=== PATIENT | male | born 1960 | race African-American/Black ===

== ENCOUNTER 2018-06-20 16:57 | Inpatient (IN) | payer OTHER ==
[2018-06-20 19:20] VITALS: BMI 22.1
--- NOTE | 2018-06-20 21:43 | HP ---
Admission ROS [facility] Chief Complaint: SEEKING REHAB SERVICES Allergies/Adverse Reactions: Allergies Allergy/AdvReac Type Severity Reaction Status Date / Time corn Allergy Verified 06/20/18 21:39 Milk Containing Products Allergy Verified 06/20/18 21:39 Iodinated Contrast- Oral and AdvReac Verified 06/20/18 21:39 IV Dye peanut AdvReac Verified 06/20/18 21:38 History of Present Illness: 57 Y.O. WITH A HISTORY OF COCAINE, MARIJUANA AND ALCOHOL DEPENDENCE IS HERE SEEKING HIS FIRST ADMISSION TO REHAB. HE REPORTS HE COMPLETED DETOX AT [facility] ON 06/12/18. LONGEST PERIOD OF ILLICIT DRUG/ALCOHL ABSTINENCE HAS BEEN 5 YEARS. PT. WAS EVALUATED AT [facility]S ER FOR ASTHMA EXACERBATION EARLIER TODAY. HE WAS PRESCRIBED A 4 DAY COURSE OF PREDNISONE THAT WILL BE INITIATED DURING WHILE IN REHAB. Exam Limitations: No Limitations - Ebola screening Have you traveled outside of the country in the last 21 days: No Have you been sick,other than usual withdrawal symptoms: No - Review of Systems Constitutional: Night Sweats, Changes in sleep EENT: reports: No Symptoms Reported Respiratory: reports: Shortness of Breath, Wheezing Cardiac: reports: No Symptoms Reported GI: reports: No Symptoms Reported : reports: No Symptoms Reported Musculoskeletal: reports: Back Pain, Neck Pain Integumentary: reports: No Symptoms Reported Neuro: reports: Numbness (RUE), Tingling (RIGHT UE) Endocrine: reports: No Symptoms Reported Hematology: reports: No Symptoms Reported Psychiatric: reports: Anxious, Depressed Other Systems: Reviewed and Negative Patient History - Patient Medical History Hx Anemia: No Hx Asthma: Yes Hx Chronic Obstructive Pulmonary Disease (COPD): Yes Hx Cancer: No Hx Cardiac Disorders: No Hx Congestive Heart Failure: No Hx Hypertension: Yes Hx Hypercholesterolemia: No Hx Pacemaker: No HX Cerebrovascular Accident: No Hx Seizures: No Hx Dementia: No Hx Diabetes: No Hx Gastrointestinal Disorders: No Hx Liver Disease: No Hx Genitourinary Disorders: No Hx Sexually Transmitted Disorders: Yes (SYPHILIS, GONORHEA AND CHLAMYDIA ( TREATED)) Hx Renal Disease (ESRD): No Hx Thyroid Disease: No Hx Human Immunodeficiency Virus (HIV): No Hx Hepatitis C: No Hx Depression: Yes Hx Suicide Attempt: No Hx Bipolar Disorder: No Hx Schizophrenia: No Other Medical History: 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 History Hx Alcohol Use: Yes Hx Substance Use: Yes Substance Use Type: Alcohol, Cocaine, Marijuana Hx Substance Use Treatment: Yes (DETOX: 06/12/18 AT [facility] ) - Substances Abused Alcohol Route: Oral Frequency: Daily Amount used: 8 24-OZ CANS OF BEER Age of first use: 13 Date of Last Use: 06/17/18 Cocaine Route: Smoking Frequency: 1-2 times per week Amount used: $400 Age of first use: 23 Date of Last Use: 06/18/18 Marijuana/Hashish Route: Smoking Frequency: Daily Amount used: $50 Age of first use: 13 Date of Last Use: 06/18/18 Family Disease History - Family Disease History Family Disease History: Heart Disease: Grandparent (HTN ), Respiratory: Grandparent Admission Physical Exam [facility] - Vital Signs Vital Signs: Vital Signs - 24 hr 06/20/18 19:18 Temperature 97.0 F L Pulse Rate 106 H Respiratory 18 Rate Blood Pressure 138/86 - Physical General Appearance: Yes: Disheveled, Anxious HEENTM: Yes: Hearing grossly Normal, Normocephalic, Normal Voice Respiratory: Yes: Wheezing Neck: Yes: No masses,lesions,Nodules, Trachea in good position Breast: Yes: Breast Exam Deferred Cardiology: Yes: Regular Rhythm, Tachycardia Abdominal: Yes: Normal Bowel Sounds, Non Tender, Flat Genitourinary: Yes: Other (NO COMPLAINTS REPORTED) Back: Yes: Normal Inspection Musculoskeletal: Yes: Gait Steady Extremities: Yes: Normal Capillary Refill, Normal Inspection, Normal Range of Motion Neurological: Yes: Alert, Normal Mood/Affect, Normal Response Integumentary: Yes: Normal Color, Dry, Warm Lymphatic: Yes: Within Normal Limits - Diagnostic (1) COPD (chronic obstructive pulmonary disease) Current Visit: Yes Status: Chronic (2) Asthma Current Visit: Yes Status: Chronic (3) Emphysema lung Current Visit: Yes Status: Chronic (4) Hypertension Current Visit: Yes Status: Chronic (5) Legally blind in left eye, as defined in [place] Current Visit: Yes Status: Chronic (6) Chronic back pain Current Visit: Yes Status: Chronic Comment: REPORTS HE COMPLETED [place] (7) Nicotine dependence Current Visit: Yes Status: Chronic Cleared for Admission [facility] - Detox or Rehab [facility] Level of Care: Observation Bed Detox Regimen/Protocol: Not Applicable Claeared for Rehab Admission: Yes [facility] Breath Alcohol Content Breath Alcohol Content: 0 Urine Drug Screen - Results Drug Screen Negative: No Urine Drug Screen Results: THC-Marijuana, GREGORIO-Cocaine Inpatient Rehab Admission - Initial Determination Are CD services needed?: Yes Free of communicable disease: Yes Not in need of hospitalization: Yes - Rehab Admission Criteria Previous failed treatment: Yes Poor recovery environment: Yes Comorbidities: Yes Lacks judgement: Yes Patient is meeting Inpatient Rehab admission criteria:: Yes
[2018-06-20] MEDS ORDERED: LOPERAMIDE HCL 2 MG CAPSULE PO PRN (22:00)
[2018-06-20] MEDS ORDERED: MENTHOL/PHENOL 1 EACH UD MM PRN (22:00)
[2018-06-20] MEDS ORDERED: MAGNESIUM HYDROX 2400MG/30ML ORAL SUSPENSION 30 ML CUP PO PRN (22:00)
[2018-06-20] MEDS ORDERED: P-EPHED 60MG/TRIPROLIDI 2.5MG TABLET PO PRN (22:00)
[2018-06-20] MEDS ORDERED: guaiFENesin/D-METHORPHAN HB 10 ML UNIT-DOSE CUPS PO PRN (22:00)
[2018-06-20] MEDS ORDERED: MAGNESIUM CITRATE 300 ML BOTTLE PO PRN (22:00)
[2018-06-20] MEDS ORDERED: MELATONIN 5 MG TABLETS PO PRN (22:00)
[2018-06-20] MEDS ORDERED: IBUPROFEN 400 MG TABLET (FP) PO PRN (22:00)
[2018-06-20] MEDS ORDERED: NICOTINE POLACRILEX 2 MG GUM BC PRN (22:00)
[2018-06-20] MEDS ORDERED: MAG HYDROX/AL HYDROX/SIMETH 30 ML UNIT-DOSE CUP PO PRN (22:00)
[2018-06-20] MEDS ORDERED: ACETAMINOPHEN 325 MG TABLET (FP) PO PRN (22:00)
[2018-06-20] MEDS ORDERED: ZOLPIDEM TARTRATE 5 MG TABLET PO ONE (22:30)
[2018-06-21] MEDS: THIAMINE HCL 100 MG TABLET (FP) PO SCH ×2 (01:00→21:34)
[2018-06-21] MEDS: predniSONE 20 MG TABLET (UD) PO SCH ×4 (01:00→21:33)
[2018-06-21] MEDS ORDERED: ZOLPIDEM TARTRATE 5 MG TABLET PO ONE (01:45)
[2018-06-21] MEDS ORDERED: BUDESONIDE/FORMETEROL FUMARATE 80/4.5 mcg INHALER IH SCH (10:00)
--- NOTE | 2018-06-21 10:29 | EKG ---
Test Reason : Blood Pressure : / mmHG Vent. Rate : 091 BPM Atrial Rate : 091 BPM P-R Int : 150 ms QRS Dur : 090 ms QT Int : 390 ms P-R-T Axes : 076 081 076 degrees QTc Int : 479 ms NORMAL SINUS RHYTHM MINIMAL VOLTAGE CRITERIA FOR LVH, MAY BE NORMAL VARIANT BORDERLINE ECG NO PREVIOUS ECGS AVAILABLE Confirmed by URBAN SCHMIDT MD ([id number]) on 06/21/2018 10:28:51 AM Referred By: Confirmed By:URBAN SCHMIDT MD
[2018-06-21] MEDS: NIFEdipine E.R. 30 MG TABLET (FP) PO SCH (10:36)
[2018-06-21] MEDS: PANTOPRAZOLE 20 MG TABLET (FP) PO SCH (10:36)
[2018-06-21] MEDS: PRENATAL VITAMINS W/ FOLIC ACID TABLET (FP) PO SCH (10:36)
[2018-06-21] MEDS: NICOTINE 21 MG/24 HOURS TOPICAL PATCH TD SCH (10:36)
--- NOTE | 2018-06-21 14:26 | HP ---
Psychiatrist Admission - Data Date of interview: 06/21/18 Admission source: [facility] Identifying data: First admission to [facility] for this 57 y/o AA male seeking rehabilitation treatment for alcohol,cocaine and cannabis dependence.First admission to [facility].Patient is single,a father of fourteen,,domiciled, unemployed and supported on SSI benefits. Medical History: Patient is legally blind (left eye).Presents with COPD, emphysema,bronchial asthma,hypertension,past treatment for STDs (syphilis, chlamydia,gonorrhea) and orthosurgery for fracture of left mandible (2014). Psychiatric History: Patient denies history of psychiatric hospitalizations.Sees a psychiatrist at a [facility] in [place].Reportedly diagnosed with Mood Disorder and prescribed seroquel 200 mg/ day (verified by discharge note from [facility]).Mr Lynch denies history of suicide attempts. Physical/Sexual Abuse/Trauma History: Patient denies. Additional Comment: Discussed in this interview.Patient confirms the following report from [facility] : Smoking history: Current every day smoker. Have you smoked in the past 12 months: Yes. Aproximately how many cigarettes per day: 3. Initiated information on smoking cessation: Yes. 'Breaking Loose' booklet given : 06/20/18. - Substance & Tx. History. Hx Alcohol Use: Yes. Hx Substance Use : Yes. Substance Use Type: Alcohol, Cocaine, Marijuana. Hx Substance Use Treatment: Yes (DETOX: 06/12/18 AT [facility] ). - Substances Abused. * * Alcohol. Route: Oral. Frequency: Daily. Amount used: 8 24-OZ CANS OF BEER. Age of first use: 13. Date of Last Use: 06/17/18. Cocaine. Route: Smoking. Frequency: 1-2 times per week. Amount used: $400. Age of first use: 23. Date of Last Use: 06/18/18. Marijuana/Hashish. Route: Smoking. Frequency: Daily. Amount used: $50. Age of first use: 13. Date of Last Use: 06/18/18. Urine Drug Screen Results: THC-Marijuana, GREGORIO-Cocaine.Noted on admission. Vital Signs: Vital Signs - 24 hr 06/20/18 06/21/18 06/21/18 19:18 03:30 04:53 Temperature 97.0 F L 98.3 F Pulse Rate 106 H 106 H Respiratory 18 18 20 Rate Blood Pressure 138/86 137/97 06/21/18 07:07 Temperature 98.3 F Pulse Rate 106 H Respiratory 20 Rate Blood Pressure 137/97 Allergies/Adverse Reactions: Allergies Allergy/AdvReac Type Severity Reaction Status Date / Time corn Allergy Verified 06/20/18 21:39 Milk Containing Products Allergy Verified 06/20/18 21:39 No Known Drug Allergies Allergy Verified 06/20/18 23:53 Iodinated Contrast- Oral and AdvReac Verified 06/20/18 21:39 IV Dye peanut AdvReac Verified 06/20/18 21:38 - Substance Abuse/Tx History Hx Alcohol Use: Yes Hx Substance Use: Yes (alcohol,cocaine,nicotine) Substance Use Type: Alcohol, Cocaine Hx Substance Use Treatment: Yes (recent detox treatment at [facility]) Mental Status Exam - Mental Status Exam Alert and Oriented to: Time, Place, Person Cognitive Function: Good Patient Appearance: Well Groomed Mood: Angry, Hostile, Irritable Affect: Normal Range Patient Behavior: Agitated (argumentative) Speech Pattern: Clear Voice Loudness: Mildly Loud Thought Process: Goal Oriented Thought Disorder: Not Present Hallucinations: Denies Suicidal Ideation: Denies Homicidal Ideation: Denies Insight/Judgement: Poor Sleep: Poorly, Difficulty falling asleep (as per self-report) Appetite: Good Muscle strength/Tone: Normal Gait/Station: Normal Psychiatric Findings - Problem List ([place] 1, 2,3) (1) Alcohol dependence Current Visit: Yes Status: Acute (2) Marijuana dependence Current Visit: Yes Status: Acute (3) Cocaine dependence Current Visit: Yes Status: Acute (4) Nicotine dependence Current Visit: Yes Status: Acute (5) Substance induced mood disorder Current Visit: Yes Status: Acute (6) Mood disorder Current Visit: Yes Status: Chronic (7) Insomnia Current Visit: Yes Status: Acute - Initial Treatment Plan Initial Treatment Plan: Psychoeducation.Sleep hygiene.Support and reassurance.Medical issues will be addressed.Seroquel dose is confirmed.Will continue seroquel 200 mg po hs.Side effects/benefits discussed with the patient.Mr Lynch agrees to this careplan.Observation.
[2018-06-21] MEDS ORDERED: QUEtiapine FUMARATE 50 MG TABLET PO ONE (15:08)
--- NOTE | 2018-06-21 15:50 | PN ---
[facility] Progress Note Note: c/o pain in (R) hand, wrist, and up to arm. Numbness, tingling sharp "10". FROM hand and wrists. No edema. Radial pulses (+). Cap refill less than 3 seconds. Reviewed home topical medication compound cream for wrist pain. Will order topical medication after pharmacy verification.
[2018-06-21] MEDS ORDERED: PT OWN MED DRAWER 7, Y5N ONE ×2 (16:28→21:59)
[2018-06-21] MEDS: MONTELUKAST NA 10 MG TABLET PO SCH (21:33)
[2018-06-21] MEDS: TAMSULOSIN HCL 0.4 MG CAP.ER.24H (FP) PO SCH (21:33)
[2018-06-21] MEDS: FORMETEROL FUMARATE IH SCH (21:33)
[2018-06-21] MEDS: diphenhydrAMINE HCL 50 MG CAPSULE PO SCH (21:33)
[2018-06-21] MEDS: QUEtiapine FUMARATE 100 MG TABLET (FP) PO SCH (21:33)
[2018-06-21] MEDS: DOCUSATE SODIUM 100 MG CAPSULE (FP) PO SCH (21:33)
[2018-06-21] MEDS: BUDESONIDE IH SCH (21:33)
[2018-06-22] MEDS: ALBUTEROL SO4 8 GM HFA INHALER IH PRN ×3 (00:18→21:49)
[2018-06-22] MEDS: hydrOXYzine PAMOATE 50 MG CAPSULE (FP) PO PRN ×2 (00:19→06:30)
[2018-06-22] MEDS: predniSONE 20 MG TABLET (UD) PO SCH ×3 (06:30→21:46)
[2018-06-22] MEDS ORDERED: PT OWN MED DRAWER 7, Y5N ONE ×2 (09:03→16:17)
[2018-06-22] MEDS: PRENATAL VITAMINS W/ FOLIC ACID TABLET (FP) PO SCH (09:44)
[2018-06-22] MEDS: NIFEdipine E.R. 30 MG TABLET (FP) PO SCH (09:44)
[2018-06-22] MEDS: FOLIC ACID 1 MG TABLET (FP) PO SCH (09:44)
[2018-06-22] MEDS: DOCUSATE SODIUM 100 MG CAPSULE (FP) PO SCH ×2 (09:44→21:46)
[2018-06-22] MEDS: PANTOPRAZOLE 20 MG TABLET (FP) PO SCH (09:44)
[2018-06-22] MEDS: NICOTINE 21 MG/24 HOURS TOPICAL PATCH TD SCH (09:45)
[2018-06-22] MEDS: TIOTROPIUM BROMIDE 2.5 MCG (SPIRIVA) RESPIMAT INHALER IH SCH (09:45)
[2018-06-22] MEDS: FORMETEROL FUMARATE IH SCH ×2 (09:46→21:46)
[2018-06-22] MEDS: BUDESONIDE IH SCH ×2 (09:46→21:46)
[2018-06-22] MEDS: ALBUTEROL SO4 2.5/IPRATROPIUM 0.5 INH SOL 3 ML VIAL.NEB. NEB PRN (10:59)
[2018-06-22] MEDS ORDERED: QUEtiapine FUMARATE 50 MG TABLET PO ONE (11:15)
[2018-06-22 11:22] LABS: HEMATOCRIT 40.7 % (35.4-49); HEMOGLOBIN 12.9 GM/dL (11.7-16.9); MCH 30.1 pg (25.7-33.7); MCHC 31.8 g/dl (32.0-35.9); MEAN CELL VOLUME 94.7 fl (80-96); PLATELET COUNT 216 K/MM3 (134-434); RDW 13.8 % (11.9-15.9); WHITE BLOOD COUNT 13.9 K/mm3 (4.0-10.0)
[2018-06-22 11:42] LABS: ANION GAP 9 MMOL/L (8-16); BLOOD UREA NITROGEN 14 mg/dL (7-18); CALCIUM 9.8 mg/dL (8.5-10.1); CHLORIDE 105 mmol/L (98-107); CO2 25 mmol/L (21-32); GLUCOSE,RANDOM 226 mg/dL (74-106); POTASSIUM 4.4 mmol/L (3.5-5.1); SODIUM 139 mmol/L (136-145)
[2018-06-22 11:45] LABS: ALK PHOS 118 U/L (45-117); BILIRUBIN,TOTAL 0.3 mg/dL (0.2-1.0); SGOT/AST 41 U/L (15-37); SGPT/ALT 69 U/L (12-78); TOT PROT 7.4 g/dl (6.4-8.2)
[2018-06-22] MEDS: QUEtiapine FUMARATE 100 MG TABLET (FP) PO SCH (21:46)
[2018-06-22] MEDS: diphenhydrAMINE HCL 50 MG CAPSULE PO SCH (21:46)
[2018-06-22] MEDS: MONTELUKAST NA 10 MG TABLET PO SCH (21:46)
[2018-06-22] MEDS: TAMSULOSIN HCL 0.4 MG CAP.ER.24H (FP) PO SCH (21:46)
[2018-06-22] MEDS: THIAMINE HCL 100 MG TABLET (FP) PO SCH (21:46)
[2018-06-23] MEDS: ALBUTEROL SO4 8 GM HFA INHALER IH PRN ×2 (02:36→18:03)
[2018-06-23] MEDS: predniSONE 20 MG TABLET (UD) PO SCH ×3 (05:53→21:16)
[2018-06-23] MEDS: hydrOXYzine PAMOATE 50 MG CAPSULE (FP) PO PRN (05:53)
[2018-06-23] MEDS: ALBUTEROL SO4 2.5/IPRATROPIUM 0.5 INH SOL 3 ML VIAL.NEB. NEB PRN ×2 (07:56→14:27)
[2018-06-23] MEDS ORDERED: PT OWN MED DRAWER 7, Y5N ONE (08:54)
[2018-06-23] MEDS: NICOTINE 21 MG/24 HOURS TOPICAL PATCH TD SCH (09:26)
[2018-06-23] MEDS: PRENATAL VITAMINS W/ FOLIC ACID TABLET (FP) PO SCH (09:27)
[2018-06-23] MEDS: FOLIC ACID 1 MG TABLET (FP) PO SCH (09:27)
[2018-06-23] MEDS: DICLOFENAC SODIUM 25 MG TABLET.DR PO PRN ×2 (09:27→14:25)
[2018-06-23] MEDS: NIFEdipine E.R. 30 MG TABLET (FP) PO SCH (09:27)
[2018-06-23] MEDS: DOCUSATE SODIUM 100 MG CAPSULE (FP) PO SCH ×2 (09:27→21:16)
[2018-06-23] MEDS: PANTOPRAZOLE 20 MG TABLET (FP) PO SCH (09:27)
[2018-06-23] MEDS: TIOTROPIUM BROMIDE 2.5 MCG (SPIRIVA) RESPIMAT INHALER IH SCH (09:30)
[2018-06-23] MEDS: BUDESONIDE IH SCH ×2 (09:31→21:15)
[2018-06-23] MEDS: FORMETEROL FUMARATE IH SCH ×2 (09:31→21:15)
[2018-06-23] MEDS: IBUPROFEN 400 MG TABLET (FP) PO PRN (14:33)
--- NOTE | 2018-06-23 19:19 | PN ---
[facility] Progress Note Note: Patient c/o severe mental health concerns and being under-medicated with seroquel. Patient requesting to carry albuterol inhaler in case of severe asthma attack. Reviewed patients' home medication list. Patient was given the option of being transferred to [facility] for mental health and medication evaluation but declined. Objective: Speaking for 10 - 15 minutes loudly while moving/pacing without signs of SOB/dyspnea and Pulse Ox =95 Security support present during conversation Plan: Patient agrees to: 1) refrain from yelling at staff or patients 2) refrain from banging doors, tossing chairs or banging haddad 3) refrain from pacing in the halls after midnight 4) insisting mental health meds be changed. All medications will remain in the nurses station and given as prescribed. Patient will be transferred to [place] for mental health evaluation or administratively discharged for uncontrolled outbursts or aggressive behavior.
[2018-06-23] MEDS: QUEtiapine FUMARATE 100 MG TABLET (FP) PO SCH (21:15)
[2018-06-23] MEDS: THIAMINE HCL 100 MG TABLET (FP) PO SCH (21:15)
[2018-06-23] MEDS: MONTELUKAST NA 10 MG TABLET PO SCH (21:15)
[2018-06-23] MEDS: TAMSULOSIN HCL 0.4 MG CAP.ER.24H (FP) PO SCH (21:15)
[2018-06-23] MEDS: diphenhydrAMINE HCL 50 MG CAPSULE PO SCH (21:16)
--- NOTE | 2018-06-23 21:42 | PN ---
[facility] Progress Note (SOAP) Subjective: Patient c/o severe mental health concerns and being under-medicated with seroquel. Patient requesting to carry albuterol inhaler in case of severe asthma attack. Objective: Alert and oriented x 3. Speaking for 10 - 15 minutes loudly while moving/ pacing without signs of SOB/dyspnea. 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 Plan: Plan: Patient agrees to: 1) refrain from yelling at staff or patients 2) refrain from banging doors, tossing chairs or banging haddad 3) refrain from pacing in the halls after midnight 4) insisting mental health meds be changed. All medications will remain in the nurses station and given as prescribed. Continue rehab protocol Patient will be transferred to [place] for mental health evaluation or administratively discharged for uncontrolled outbursts or aggressive behavior.
[2018-06-24] MEDS: predniSONE 20 MG TABLET (UD) PO SCH ×3 (06:03→21:44)
[2018-06-24] MEDS: ALBUTEROL SO4 8 GM HFA INHALER IH PRN ×2 (06:04→16:37)
[2018-06-24] MEDS: hydrOXYzine PAMOATE 50 MG CAPSULE (FP) PO PRN ×4 (06:04→17:04)
[2018-06-24] MEDS: ALBUTEROL SO4 2.5/IPRATROPIUM 0.5 INH SOL 3 ML VIAL.NEB. NEB PRN ×2 (08:06→16:38)
[2018-06-24] MEDS ORDERED: PT OWN MED DRAWER 7, Y5N ONE ×3 (08:54→21:44)
[2018-06-24] MEDS: NIFEdipine E.R. 30 MG TABLET (FP) PO SCH (10:03)
[2018-06-24] MEDS: DOCUSATE SODIUM 100 MG CAPSULE (FP) PO SCH ×2 (10:03→21:44)
[2018-06-24] MEDS: PANTOPRAZOLE 20 MG TABLET (FP) PO SCH (10:03)
[2018-06-24] MEDS: PRENATAL VITAMINS W/ FOLIC ACID TABLET (FP) PO SCH (10:03)
[2018-06-24] MEDS: TIOTROPIUM BROMIDE 2.5 MCG (SPIRIVA) RESPIMAT INHALER IH SCH (10:04)
[2018-06-24] MEDS: NICOTINE 21 MG/24 HOURS TOPICAL PATCH TD SCH (10:04)
[2018-06-24] MEDS: FOLIC ACID 1 MG TABLET (FP) PO SCH (10:04)
[2018-06-24] MEDS: BUDESONIDE IH SCH ×2 (10:06→21:44)
[2018-06-24] MEDS: FORMETEROL FUMARATE IH SCH ×2 (10:06→21:44)
--- NOTE | 2018-06-24 16:22 | PN ---
S Progress Note Note: Followed-up with patient today. Patient's voice is calm, and there are nor restless or agitated movements observed. Patient states he is adhering to behavioral requirements. Quieter, controlled behavior is confirmed by nursing staff. Plan: Continue rehab.
[2018-06-24] MEDS: TAMSULOSIN HCL 0.4 MG CAP.ER.24H (FP) PO SCH (21:43)
[2018-06-24] MEDS: MONTELUKAST NA 10 MG TABLET PO SCH (21:43)
[2018-06-24] MEDS: QUEtiapine FUMARATE 100 MG TABLET (FP) PO SCH (21:44)
[2018-06-24] MEDS: THIAMINE HCL 100 MG TABLET (FP) PO SCH (21:44)
[2018-06-24] MEDS: diphenhydrAMINE HCL 50 MG CAPSULE PO SCH (21:44)
[2018-06-25] MEDS: ALBUTEROL SO4 8 GM HFA INHALER IH PRN (03:02)
[2018-06-25] MEDS: hydrOXYzine PAMOATE 50 MG CAPSULE (FP) PO PRN ×2 (03:02→10:36)
[2018-06-25] MEDS ORDERED: PT OWN MED DRAWER 7, Y5N ONE (08:55)
[2018-06-25] MEDS: PANTOPRAZOLE 20 MG TABLET (FP) PO SCH (10:28)
[2018-06-25] MEDS: PRENATAL VITAMINS W/ FOLIC ACID TABLET (FP) PO SCH (10:28)
[2018-06-25] MEDS: NIFEdipine E.R. 30 MG TABLET (FP) PO SCH (10:28)
[2018-06-25] MEDS: NICOTINE 21 MG/24 HOURS TOPICAL PATCH TD SCH (10:29)
[2018-06-25] MEDS: BUDESONIDE IH SCH ×2 (10:29→21:45)
[2018-06-25] MEDS: FORMETEROL FUMARATE IH SCH ×2 (10:29→21:45)
[2018-06-25] MEDS: DICLOFENAC SODIUM 25 MG TABLET.DR PO PRN (10:30)
[2018-06-25] MEDS: FOLIC ACID 1 MG TABLET (FP) PO SCH (10:30)
[2018-06-25] MEDS: DOCUSATE SODIUM 100 MG CAPSULE (FP) PO SCH ×2 (10:33→21:45)
[2018-06-25] MEDS: ALBUTEROL SO4 2.5/IPRATROPIUM 0.5 INH SOL 3 ML VIAL.NEB. NEB PRN ×2 (10:42→16:58)
[2018-06-25] MEDS: TIOTROPIUM BROMIDE 2.5 MCG (SPIRIVA) RESPIMAT INHALER IH SCH (10:43)
--- NOTE | 2018-06-25 13:00 | PN ---
Psychiatric Progress Note Vital Signs: Vital Signs Period Temp Pulse Resp BP Sys/Capps Pulse Ox Last 24 Hr 106-128 -18 115-145/68-94 Date of Session: 06/25/18 Chief Complaint:: " I need more seroquel.I cannot sleep at night." HPI: Patient is re-evaluated to address irritability,recurrent angry outbursts and insomnia.Mr Lynch is already known to this policy writer typist. ROS: Patient is alert and fully oriented.Easily agitated.Hyperactive. Current Medications: Active Medications Generic Name Dose Route Start Last Admin Trade Name Freq PRN Reason Stop Dose Admin Acetaminophen 650 mg 06/20/18 22:00 Tylenol - PO Q4H PRN FEVER Al Hydroxide/Mg Hydroxide 30 ml 06/20/18 22:00 Mylanta Oral Suspension - PO Q6H PRN DYSPEPSIA Albuterol Sulfate 2 puff 06/21/18 01:13 06/25/18 03:02 Ventolin Hfa Inhaler - IH 2 puff Q4H PRN Administration ASTHMA Albuterol/Ipratropium 1 amp 06/20/18 22:11 06/25/18 10:42 Duoneb - NEB 1 amp Q4H PRN Administration SHORTNESS OF BREATH Budesonide/Formoterol Fumarate 2 puff 06/21/18 22:00 06/25/18 10:29 Symbicort 80/4.5mcg - IH 2 puff BID KATRIN Administration Diclofenac Sodium 50 mg 06/21/18 15:50 06/25/18 10:30 Voltaren - PO 50 mg TID PRN Administration PAIN LEVEL 7 - 10 Diphenhydramine HCl 50 mg 06/21/18 22:00 06/24/18 21:44 Benadryl - PO 50 mg HS KATRIN Administration Docusate Sodium 100 mg 06/21/18 22:00 06/25/18 10:33 Colace - PO 100 mg BID KATRIN Administration Eucalyptus/Menthol/Phenol/Sorbitol 1 each 06/20/18 22:00 Cepastat Lozenge - MM Q4H PRN SORE THROAT Folic Acid 1 mg 06/22/18 10:00 06/25/18 10:30 Folic Acid - PO 1 mg DAILY KATRIN Administration Guaifenesin 10 ml 06/20/18 22:00 Robitussin Dm - PO Q6H PRN COUGH Hydroxyzine Pamoate 50 mg 06/20/18 22:00 06/25/18 10:36 Vistaril - PO 50 mg Q4H PRN Administration AGITATION Ibuprofen 800 mg 06/21/18 01:20 06/23/18 14:33 Motrin - PO 800 mg Q8H PRN Administration Pain level 4-6 Loperamide HCl 4 mg 06/20/18 22:00 Imodium - PO Q6H PRN DIARRHEA Magnesium Citrate 300 ml 06/20/18 22:00 Citroma - PO Q48H PRN CONSTIPATION Magnesium Hydroxide 30 ml 06/20/18 22:00 Milk Of Magnesia - PO DAILY PRN CONSTIPATION Melatonin 5 mg 06/20/18 22:00 Melatonin PO HS PRN INSOMNIA Montelukast Sodium 10 mg 06/21/18 22:00 06/24/18 21:43 Singulair - PO 10 mg HS KATRIN Administration Nicotine 21 mg 06/21/18 10:00 06/25/18 10:29 Nicoderm Patch - TD 21 mg DAILY KATRIN Administration Nicotine Polacrilex 2 mg 06/20/18 22:00 Nicorette Gum - BC Q2H PRN NICOTINE REPLACEMENT RX Nifedipine 30 mg 06/21/18 10:00 06/25/18 10:28 Procardia Xl - PO 30 mg DAILY KATRIN Administration Non-Formulary Medication 1 each 06/21/18 18:00 06/25/18 10:31 Patient's Own Med TP 1 each QID KATRIN Administration Pantoprazole Sodium 20 mg 06/21/18 10:00 06/25/18 10:28 Protonix - PO 20 mg DAILY KATRIN Administration Multivit/Folic Acid/Iron 1 tab 06/21/18 10:00 06/25/18 10:28 Vitamins (Sjr) - PO 1 tab DAILY KATRIN Administration Pseudoephedrine/Triprolidine 1 combo 06/20/18 22:00 Actifed - PO TID PRN NASAL CONGESTION Quetiapine Fumarate 100 mg 06/21/18 22:00 06/24/18 21:44 Seroquel - PO 100 mg HS KATRIN Administration Quetiapine Fumarate 100 mg 06/25/18 13:00 Seroquel - PO DAILY KATRIN Tamsulosin HCl 0.4 mg 06/21/18 22:00 06/24/18 21:43 Flomax - PO 0.4 mg HS KATRIN Administration Thiamine HCl 100 mg 06/20/18 22:00 06/24/18 21:44 Vitamin B1 - PO 100 mg HS KATRIN Administration Tiotropium Glide 2 puff 06/22/18 10:00 06/25/18 10:43 Spiriva Respimat IH 2 puff DAILY KATRIN Administration Medication(s) Change(s): Seroquel is now raised to 100 mg po daily + 150 mg po hs.Side effects/benefits are discussed with the patient.Mr Lynch agrees to that plan of care. Current Side Effect: No Lab tests ordered: No Lab tests reviewed: Yes Provider note:: Met with patient.Mr Lynch is irritable and needy.He insists on getting a dose of seroquel during daytime.Patient is receptive to teaching.Responsive to redirections.Not psychotic.Able to maintain good rapport with staff.Baseline. Total face to face time:: 25 Mental Status Exam - Mental Status Exam Alert and Oriented to: Time, Place, Person Cognitive Function: Good Patient Appearance: Well Groomed Mood: Anxious, Irritable Affect: Mood Congruent Patient Behavior: Appropriate, Cooperative Speech Pattern: Clear, Appropriate Voice Loudness: Normal Thought Process: Goal Oriented Thought Disorder: Not Present Hallucinations: Denies Suicidal Ideation: Denies Homicidal Ideation: Denies Insight/Judgement: Fair Sleep: Poorly, Difficulty falling asleep Appetite: Good Muscle strength/Tone: Normal Gait/Station: Normal Psychiatric Treatment Plan - Problem List (1) Alcohol dependence Current Visit: Yes (2) Marijuana dependence Current Visit: Yes (3) Cocaine dependence Current Visit: Yes (4) Nicotine dependence Current Visit: Yes (5) Substance induced mood disorder Current Visit: Yes (6) Mood disorder Current Visit: Yes (7) Insomnia Current Visit: Yes
[2018-06-25] MEDS: QUEtiapine FUMARATE 100 MG TABLET (FP) PO SCH ×2 (13:15→21:45)
--- NOTE | 2018-06-25 13:54 | PN ---
[facility] Progress Note Note: Vital Signs Temperature 98 F 06/24/18 06:53 Pulse Rate 106 H 06/25/18 09:58 Respiratory Rate 18 06/25/18 09:58 Blood Pressure 115/94 06/25/18 09:58 O2 Sat by Pulse Oximetry (%) Laboratory Last Values WBC 13.9 K/mm3 (4.0-10.0) H 06/22/18 09:39 RBC 4.30 M/mm3 (4.00-5.60) 06/22/18 09:39 Hgb 12.9 GM/dL (11.7-16.9) 06/22/18 09:39 Hct 40.7 % (35.4-49) 06/22/18 09:39 MCV 94.7 fl (80-96) 06/22/18 09:39 MCH 30.1 pg (25.7-33.7) 06/22/18 09:39 MCHC 31.8 g/dl (32.0-35.9) L 06/22/18 09:39 RDW 13.8 % (11.9-15.9) 06/22/18 09:39 Plt Count 216 K/MM3 (134-434) 06/22/18 09:39 MPV 10.0 fl (7.5-11.1) 06/22/18 09:39 Sodium 139 mmol/L (136-145) 06/22/18 09:39 Potassium 4.4 mmol/L (3.5-5.1) 06/22/18 09:39 Chloride 105 mmol/L (98-107) 06/22/18 09:39 Carbon Dioxide 25 mmol/L (21-32) 06/22/18 09:39 Anion Gap 9 MMOL/L (8-16) 06/22/18 09:39 BUN 14 mg/dL (7-18) 06/22/18 09:39 Creatinine 1.0 mg/dL (0.7-1.3) 06/22/18 09:39 Creat Clearance w eGFR > 60 (>60) 06/22/18 09:39 Random Glucose 226 mg/dL (74-106) H 06/22/18 09:39 Calcium 9.8 mg/dL (8.5-10.1) 06/22/18 09:39 Total Bilirubin 0.3 mg/dL (0.2-1.0) 06/22/18 09:39 AST 41 U/L (15-37) H 06/22/18 09:39 ALT 69 U/L (12-78) 06/22/18 09:39 Alkaline Phosphatase 118 U/L (45-117) H 06/22/18 09:39 Total Protein 7.4 g/dl (6.4-8.2) 06/22/18 09:39 Albumin 4.0 g/dl (3.4-5.0) 06/22/18 09:39 RPR Titer Nonreactive (NONREACTIVE) 06/22/18 09:39 Labs reviewed d/c tylenol repeat CBC u/a ordered continue to monitor
--- NOTE | 2018-06-25 14:49 | PN ---
[facility] Progress Note Note: c/o of generalized itching Benadryl 25 mg prn increase fluids continue to monitor
[2018-06-25] MEDS: diphenhydrAMINE HCL 25 MG CAPSULE (FP) PO PRN ×2 (14:54→21:45)
[2018-06-25 19:31] LABS: URINE APPEARANCE CLEAR; URINE BILIRUBIN NEGATIVE (<2.0 mg/dL); URINE COLOR STRAW; URINE GLUCOSE (UA) 3+ (NEGATIVE); URINE KETONE NEGATIVE (NEGATIVE); URINE LEUK ESTERASE NEGATIVE (NEGATIVE); URINE NITRITE NEGATIVE (NEGATIVE); URINE PROTEIN NEGATIVE (NEGATIVE); URINE UROBILINOGEN NEGATIVE mg/dL (0.2-1.0)
[2018-06-25] MEDS: TAMSULOSIN HCL 0.4 MG CAP.ER.24H (FP) PO SCH (21:45)
[2018-06-25] MEDS: THIAMINE HCL 100 MG TABLET (FP) PO SCH (21:45)
[2018-06-25] MEDS: MONTELUKAST NA 10 MG TABLET PO SCH (21:45)
--- NOTE | 2018-06-25 22:16 | PN ---
S Progress Note Note: Vital Signs Temperature 98 F 06/24/18 06:53 Pulse Rate 106 H 06/25/18 09:58 Respiratory Rate 18 06/25/18 09:58 Blood Pressure 115/94 06/25/18 09:58 O2 Sat by Pulse Oximetry (%) c/o of sore throat peridex prn throat culture continue to monitor
[2018-06-25] MEDS: IBUPROFEN 400 MG TABLET (FP) PO PRN (22:46)
[2018-06-26] MEDS: hydrOXYzine PAMOATE 50 MG CAPSULE (FP) PO PRN ×3 (06:00→14:40)
[2018-06-26] MEDS: NICOTINE 21 MG/24 HOURS TOPICAL PATCH TD SCH (09:51)
[2018-06-26] MEDS: PANTOPRAZOLE 20 MG TABLET (FP) PO SCH (09:51)
[2018-06-26] MEDS: DOCUSATE SODIUM 100 MG CAPSULE (FP) PO SCH ×2 (09:51→22:07)
[2018-06-26] MEDS: TIOTROPIUM BROMIDE 2.5 MCG (SPIRIVA) RESPIMAT INHALER IH SCH (09:51)
[2018-06-26] MEDS: NIFEdipine E.R. 30 MG TABLET (FP) PO SCH (09:51)
[2018-06-26] MEDS: FORMETEROL FUMARATE IH SCH ×2 (09:51→22:10)
[2018-06-26] MEDS: QUEtiapine FUMARATE 100 MG TABLET (FP) PO SCH ×2 (09:51→22:08)
[2018-06-26] MEDS: BUDESONIDE IH SCH ×2 (09:51→22:10)
[2018-06-26] MEDS: PRENATAL VITAMINS W/ FOLIC ACID TABLET (FP) PO SCH (09:51)
[2018-06-26] MEDS: FOLIC ACID 1 MG TABLET (FP) PO SCH (09:53)
[2018-06-26] MEDS: diphenhydrAMINE HCL 25 MG CAPSULE (FP) PO PRN ×2 (09:55→22:12)
[2018-06-26] MEDS: CHLORHEXIDINE GLUCONATE 0.12% 15ML CUP MM SCH ×2 (10:17→22:09)
[2018-06-26] MEDS: ALBUTEROL SO4 2.5/IPRATROPIUM 0.5 INH SOL 3 ML VIAL.NEB. NEB PRN ×2 (14:39→22:31)
--- NOTE | 2018-06-26 15:46 | PN ---
[facility] Progress Note Note: Vital Signs Temperature 97.3 F L 06/26/18 06:48 Pulse Rate 107 H 06/26/18 10:51 Respiratory Rate 18 06/26/18 10:51 Blood Pressure 123/97 06/26/18 10:51 O2 Sat by Pulse Oximetry (%) c/o of sore throat and requested to see a dentist. Poor dentition no infection pending throat culture pending lab results
[2018-06-26 16:06] LABS: BASO % 0.7 % (0-2.0); EOS % 1.6 % (0-4.5); HEMATOCRIT 40.4 % (35.4-49); HEMOGLOBIN 13.2 GM/dL (11.7-16.9); LYMPH % 24.2 % (8-40); MCH 30.6 pg (25.7-33.7); MCHC 32.8 g/dl (32.0-35.9); MEAN CELL VOLUME 93.4 fl (80-96); MEAN PLT VOLUME 9.5 fl (7.5-11.1); NEUT % 66.5 % (42.8-82.8); PLATELET COUNT 238 K/MM3 (134-434); RBC 4.33 M/mm3 (4.00-5.60); RDW 13.8 % (11.9-15.9); WHITE BLOOD COUNT 7.5 K/mm3 (4.0-10.0)
[2018-06-26 18:25] LABS: PLATELET ESTIMATE ADEQUATE
[2018-06-26] MEDS: IBUPROFEN 400 MG TABLET (FP) PO PRN (20:16)
[2018-06-26] MEDS: TAMSULOSIN HCL 0.4 MG CAP.ER.24H (FP) PO SCH (22:07)
[2018-06-26] MEDS: MONTELUKAST NA 10 MG TABLET PO SCH (22:07)
[2018-06-26] MEDS: THIAMINE HCL 100 MG TABLET (FP) PO SCH (22:08)
[2018-06-27] MEDS: hydrOXYzine PAMOATE 50 MG CAPSULE (FP) PO PRN (05:55)
[2018-06-27] MEDS: IBUPROFEN 400 MG TABLET (FP) PO PRN (05:55)
[2018-06-27 07:10] VITALS: BP 115/83; PULSE 108; TEMP 97.8
[2018-06-27] MEDS ORDERED: PT OWN MED DRAWER 7, Y5N ONE (09:25)
--- NOTE | 2018-06-27 09:26 | PN ---
Psychiatric Progress Note Vital Signs: Vital Signs Period Temp Pulse Resp BP Sys/Capps Pulse Ox Last 24 Hr 97.8 F 107-108 18-20 115-123/83-97 Date of Session: 06/27/18 Chief Complaint:: "Discharge" HPI: Patient was admitted to for alcohol,cocaine and cannabis dependence. ROS: Patient is legally blind (left eye).Presents with COPD,emphysema,bronchial asthma,hypertension,past treatment for STDs (syphilis,chlamydia,gonorrhea) and orthosurgery for fracture of left mandible (2014). Current Medications: Active Medications Generic Name Dose Route Start Last Admin Trade Name Freq PRN Reason Stop Dose Admin Al Hydroxide/Mg Hydroxide 30 ml 06/20/18 22:00 Mylanta Oral Suspension - PO Q6H PRN DYSPEPSIA Albuterol Sulfate 2 puff 06/21/18 01:13 06/25/18 03:02 Ventolin Hfa Inhaler - IH 2 puff Q4H PRN Administration ASTHMA Albuterol/Ipratropium 1 amp 06/20/18 22:11 06/26/18 22:31 Duoneb - NEB 1 amp Q4H PRN Administration SHORTNESS OF BREATH Budesonide/Formoterol Fumarate 2 puff 06/21/18 22:00 06/26/18 22:10 Symbicort 80/4.5mcg - IH 2 puff BID KATRIN Administration Chlorhexidine Gluconate 15 ml 06/26/18 10:00 06/26/18 22:09 Peridex - MM 15 ml BID KATRIN Administration Diclofenac Sodium 50 mg 06/21/18 15:50 06/25/18 10:30 Voltaren - PO 50 mg TID PRN Administration PAIN LEVEL 7 - 10 Diphenhydramine HCl 25 mg 06/25/18 14:47 06/26/18 22:12 Benadryl - PO 25 mg HS PRN Administration INSOMNIA Docusate Sodium 100 mg 06/21/18 22:00 06/26/18 22:07 Colace - PO 100 mg BID KATRIN Administration Eucalyptus/Menthol/Phenol/Sorbitol 1 each 06/20/18 22:00 06/27/18 05:56 Cepastat Lozenge - MM 1 each Q4H PRN Administration SORE THROAT Folic Acid 1 mg 06/22/18 10:00 06/26/18 09:53 Folic Acid - PO 1 mg DAILY KATRIN Administration Guaifenesin 10 ml 06/20/18 22:00 Robitussin Dm - PO Q6H PRN COUGH Hydroxyzine Pamoate 50 mg 06/20/18 22:00 06/27/18 05:55 Vistaril - PO 50 mg Q4H PRN Administration AGITATION Ibuprofen 800 mg 06/21/18 01:20 06/27/18 05:55 Motrin - PO 800 mg Q8H PRN Administration Pain level 4-6 Loperamide HCl 4 mg 06/20/18 22:00 Imodium - PO Q6H PRN DIARRHEA Magnesium Citrate 300 ml 06/20/18 22:00 Citroma - PO Q48H PRN CONSTIPATION Magnesium Hydroxide 30 ml 06/20/18 22:00 Milk Of Magnesia - PO DAILY PRN CONSTIPATION Melatonin 5 mg 06/20/18 22:00 06/25/18 21:46 Melatonin PO 5 mg HS PRN Administration INSOMNIA Montelukast Sodium 10 mg 06/21/18 22:00 06/26/18 22:07 Singulair - PO 10 mg HS KATRIN Administration Nicotine 21 mg 06/21/18 10:00 06/26/18 09:51 Nicoderm Patch - TD 21 mg DAILY KATRIN Administration Nicotine Polacrilex 2 mg 06/20/18 22:00 Nicorette Gum - BC Q2H PRN NICOTINE REPLACEMENT RX Nifedipine 30 mg 06/21/18 10:00 06/26/18 09:51 Procardia Xl - PO 30 mg DAILY KATRIN Administration Non-Formulary Medication 1 each 06/21/18 18:00 06/26/18 22:10 Patient's Own Med TP Not Given QID KATRIN Pantoprazole Sodium 20 mg 06/21/18 10:00 06/26/18 09:51 Protonix - PO 20 mg DAILY KATRIN Administration Multivit/Folic Acid/Iron 1 tab 06/21/18 10:00 06/26/18 09:51 Vitamins (Sjr) - PO 1 tab DAILY KATRIN Administration Pseudoephedrine/Triprolidine 1 combo 06/20/18 22:00 Actifed - PO TID PRN NASAL CONGESTION Quetiapine Fumarate 100 mg 06/21/18 22:00 06/26/18 22:08 Seroquel - PO 100 mg HS KATRIN Administration Quetiapine Fumarate 100 mg 06/25/18 13:00 06/26/18 09:51 Seroquel - PO 100 mg DAILY KATRIN Administration Tamsulosin HCl 0.4 mg 06/21/18 22:00 06/26/18 22:07 Flomax - PO 0.4 mg HS KATRIN Administration Thiamine HCl 100 mg 06/20/18 22:00 06/26/18 22:08 Vitamin B1 - PO 100 mg HS KATRIN Administration Tiotropium [place] 2 puff 06/22/18 10:00 06/26/18 09:51 Spiriva Respimat IH 2 puff DAILY KATRIN Administration Medication(s) Change(s): No. Current Side Effect: No Lab tests ordered: No Lab tests reviewed: Yes Provider note:: Patient will be discharged from [facility] on 06/27/18. Through participation of this program patient has learned the importance of changing his behaviors and the need for more structure in his life. Pt is able to identify behaviors that contribute to relapsing. Pt. will continue to address his issues at the [facility] in [place], [place]. A prescription of seroquel 100mg daily + 100mg qhs will be electronically sent to patient's pharmacy at [facility] pharmacy at [address] [place] [address]. Pt is stable for discharge on 06/27/18. Total face to face time:: 35 Mental Status Exam - Mental Status Exam Alert and Oriented to: Time, Place, Person Cognitive Function: Good Patient Appearance: Well Groomed Mood: Happy Affect: Appropriate Patient Behavior: Talkative, Cooperative Speech Pattern: Appropriate Voice Loudness: Normal, Mildly Loud Thought Process: Intact, Goal Oriented Thought Disorder: Not Present Hallucinations: Denies Suicidal Ideation: Denies Homicidal Ideation: Denies Insight/Judgement: Good, Fair Sleep: Well Appetite: Good Muscle strength/Tone: Normal Gait/Station: Normal
[2018-06-27] MEDS: PRENATAL VITAMINS W/ FOLIC ACID TABLET (FP) PO SCH (09:28)
[2018-06-27] MEDS: FORMETEROL FUMARATE IH SCH (09:28)
[2018-06-27] MEDS: BUDESONIDE IH SCH (09:28)
[2018-06-27] MEDS: FOLIC ACID 1 MG TABLET (FP) PO SCH (09:29)
[2018-06-27] MEDS: QUEtiapine FUMARATE 100 MG TABLET (FP) PO SCH (09:29)
[2018-06-27] MEDS: DOCUSATE SODIUM 100 MG CAPSULE (FP) PO SCH (09:29)
[2018-06-27] MEDS: NIFEdipine E.R. 30 MG TABLET (FP) PO SCH (09:29)
[2018-06-27] MEDS: PANTOPRAZOLE 20 MG TABLET (FP) PO SCH (09:29)
[2018-06-27] MEDS: CHLORHEXIDINE GLUCONATE 0.12% 15ML CUP MM SCH (09:30)
[2018-06-27] MEDS: TIOTROPIUM BROMIDE 2.5 MCG (SPIRIVA) RESPIMAT INHALER IH SCH (09:30)
== END 2018-06-27 09:50 | disposition home or self-care (01) | DRG 772 ==
LOC: YASAS 16:57 → Y3W 20:13
PROVIDERS: ADMIT Psychiatry & Neurology Psychiatry; ATTEND Psychiatry & Neurology Psychiatry
PROC: HZ42ZZZ Group Counseling for Substance Abuse Treatment, Cognitive-Behavioral (ICD-10-PCS; principal; 2018-06-20)
DX: F10.20 Alcohol dependence, uncomplicated (principal); F14.20 Cocaine dependence, uncomplicated; F12.20 Cannabis dependence, uncomplicated; F17.210 Nicotine dependence, cigarettes, uncomplicated; F19.24 Other psychoactive substance dependence with psychoactive substance-induced mood disorder; F39 Unspecified mood [affective] disorder; F32.9 Major depressive disorder, single episode, unspecified; G47.00 Insomnia, unspecified; J43.9 Emphysema, unspecified; J45.909 Unspecified asthma, uncomplicated; I10 Essential (primary) hypertension; H54.62 Unqualified visual loss, left eye, normal vision right eye; M54.5 Low back pain; G89.29 Other chronic pain; Z86.19 Personal history of other infectious and parasitic diseases
CPT/HCPCS: 36415; 71046-TC-FY; 80053; 81003; 82962; 85025; 85027; 86593; 87070; 93005; 93010; 94640; J7620